=== PATIENT | male | born 1960 | race Caucasian/White ===

== ENCOUNTER 2024-08-31 07:36 | Emergency (ER) | payer OTHER, SELFPAY ==
[2024-08-31] VITALS (8 sets, daily range): BP systolic 119–174; BP diastolic 73–86; PULSE 59–96; RESP 17–23; TEMP 37.2–38.5; O2SAT 88–100; BMI 41.5
--- NOTE | 2024-08-31 07:41 | EKG_ITS ---
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
--- NOTE | 2024-08-31 07:41 | XR_ITS ---
Examination: AP chest single view Technique one AP portable semiupright chest single view Exam date and time: August 31, 2024 0754 hrs. Indications: Chest pain today Findings: Mild enlargement cardiac contour Mild vascular congestion No lobar pneumonia Old fracture right clavicle with moderate osteopenia Impression: Mild vascular congestion
--- NOTE | 2024-08-31 07:46 | EDNOTE_ITS ---
ED SOB =RME/HPI General Chief Complaint: Shortness of Breath/Dyspnea Stated Complaint: SOB Time Seen by Provider: 08/31/24 07:41 Arrival date/time: 08/31/24 07:36 RME / HPI RME / HPI Narrative: DR. BERNARDO MAIN ED EVALUATION: 64 year old male with past medical history significant for COPD presents to the Emergency Department [facility] with complaint of shortness of breath today. Per EMS, patient was satting at 88% on room air en route. Patient has an inhaler but no home oxygen. Associated symptoms include fevers, chills, headache, and a sore throat. Related Data Home Medications ?Medication ?Instructions ?Recorded ?Confirmed Quinapril Hcl * (ACCUPRIL *) 40 mg PO QDAY #0 tabs 07/07 amlodipine 10 mg tablet (Norvasc) 10 mg PO QDAY #0 tab s 07/20/16 atorvastatin 10 mg tablet (Lipitor) 10 mg PO HS #0 tab s 07/20/16 mirabegron 25 mg tablet,extended ##0 07/20/16 release 24 hr (Myrbetriq) oxycodone 80 mg tablet,crush 80 mg PO Q12H ##0 7 resistant,extended release 12 hr (OxyContin) pregabalin 150 mg capsule (Lyrica) 150 mg PO BID #2 ca ps 07/20/16 silodosin 8 mg capsule (Rapaflo) ##0 07/20/16 Hydrocodone/Acetaminophen * (NORCO 1 tab PO Q6H PRN PA IN #0 tabs 06/08/17 10/325 *) insulin lispro 100 unit/mL 40 TID ##0 06/08/17 subcutaneous cartridge (Humalog U-100 Insulin) naloxegol 25 mg tablet (Movantik) 25 mg PO #0 tabs Previous Rx's ?Medication ?Instructions ?Recorded azithromycin 500 mg tablet See Rx Instructions PO .COM PLEX #3 05/19/18 tabs ipratropium bromide 21 mcg (0.03 2 spray intranasal BI D #30 mL 05/19/18 %) nasal spray loratadine 10 mg tablet (Allergy 10 mg PO QDAY allergy symptoms #30 05/19/18 Relief (loratadine)) tabs albuterol sulfate 90 mcg/actuation See Rx Instructions inhalation 04/08/19 aerosol inhaler .COMPLEX PRN wheezing / coug h / shortness of breath #6.7 grams benzonatate 100 mg capsule See Rx Instructions .Route 04/08/19 (Tessalon Perles) .COMPLEX cough #30 caps inhalational spacing device #1 ea 04/08/19 (Aerochamber MV spacer) prednisone 20 mg tablet See Rx Instructions PO QAM # 8 tabs 04/08/19 azithromycin 250 mg tablet 250 mg PO QDAY 4 days #4 ta bs 08/31/24 oseltamivir 75 mg capsule (Tamiflu) 75 mg PO BID 5 day s #10 caps 08/31/24 Allergies Allergy/AdvReac Type Severity Reaction Status Date / Time No Known Allergies Allergy Verified 04/08/19 17:12 Review of Systems Review of Systems Systems Reviewed: All systems reviewed, normal except as documented Past Medical History Past Medical History ENDOCRINE: Positive Diabetes Mellitus Type 1 Social History SMOKING STATUS: Never smoker SUBSTANCE USE: does not use ALCOHOL: Never ED Exam Narrative Physical exam: GENERAL APPEARANCE: alert and oriented x 4, well-developed, well-nourished, in respiratory distress, tachypneic VITALS: All vitals were reviewed and the pulse ox is 88% on room air, which is hypoxic according to my interpretation. HEENT: Normocephalic, atraumatic; pupils equal, round, reactive to light; EOMI; mucous membranes pink, moist; oropharynx clear NECK: Supple LUNGS: Tachypneic. CTABL; no wheezes, no rales, no rhonchi HEART: Regular rate, regular rhythm; normal S1, S2; no murmurs ABDOMEN: non distended; normal BS; soft, no tenderness, no guarding, no rebound; no masses, no organomegaly, no hernia BACK: no CVA tenderness EXTREMITIES: atraumatic; no edema NEUROLOGIC: awake; alert and oriented x4; cranial nerves II-XII grossly intact; no focal sensory or motor deficits PSYCHIATRIC: appropriate mood and affect SKIN: warm, dry, normal color; no rashes Course Quality Measures none Orders Category Date Time Status Bedside COVID-19 Antigen Test NOW Care 08/31/24 07:41 Active Bedside Influenza A&B Antigen Test NOW Care 08/31/24 07:41 Completed Solar 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/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 NOW Care 08/31/24 07:41 Active EKG (ED ONLY) *Do not use* NOW Care 08/31/24 07:41 Completed EKG (ED Only) Stat Exams 08/31/24 07:41 Draft XR chest 1V portable Stat Exams 08/31/24 07:41 Completed B-Type Natriuretic Peptide Stat Lab 08/31/24 08:25 Completed Blood Culture (Lab) Stat Lab 08/31/24 08:10 Received CBC Stat Lab 08/31/24 08:25 Completed Comprehensive Metabolic Panel Stat Lab 08/31/24 08:25 Completed Lactate (Lactic Acid) Stat Lab 08/31/24 08:25 Completed Lipase Stat Lab 08/31/24 08:25 Completed Magnesium Stat Lab 08/31/24 08:25 Completed Partial Thromboplastin Time Stat Lab 08/31/24 08:25 Completed Procalcitonin Stat Lab 08/31/24 08:25 Completed Prothrombin Time with INR Stat Lab 08/31/24 08:25 Completed Troponin I Stat Lab 08/31/24 08:25 Completed Urinalysis Stat Lab 08/31/24 09:18 Completed Urine Culture Stat Lab 08/31/24 09:18 Received Albuterol/Ipratr Rt Nancy [Duoneb Rt Nancy] Med 08/31/24 10:15 Discontinued 3 ml INH X1 ONE Azithromycin Inj [Zithromax Inj] 500 mg Med 08/31/24 10:15 Discontinued Sodium Chloride 0.9% 250 ml [Ns] 250 ml IV X1 Dexamethasone Inj [Decadron Inj] Med 08/31/24 10:15 Discontinued 6 mg IV X1 ONE Oseltamivir [Tamiflu] Med 08/31/24 10:11 Discontinued 75 mg PO X1 ONE oxyCODONE CONTROLLED RELEASE [OxyCONTIN] Med 08/31/24 10:59 Discontinued 30 mg PO X1 ONE Reevaluation(s) Reevaluation #1: Patient states that he feels good and would like to go home. He states that his low oxygen saturation is normal for him and would like to go home. Time: 12:50 Vital Signs Vital signs: Vital Signs Temperature 101.3 F H 08/31/24 07:39 Pulse Rate 84 08/31/24 07:39 Respiratory Rate 19 08/31/24 07:39 Blood Pressure 174/82 H 08/31/24 07:39 Pulse Oximetry (%) 96 08/31/24 07:39 Oxygen Delivery Method Nasal Cannula 08/31/24 07:39 Oxygen Flow Rate 6 08/31/24 07:39 Shortness of Breath / Dyspnea MDM Narrative MDM Narrative:: Chen Maxwell am scribing for and in the presence of Dr. Bernardo. Patient data External records reviewed:: EMS form Clinical information provided by:: patient and EMS Social determinants that could affect healthcare access:: alcohol use Patient has the following chronic illnesses:: COPD, diabetes mellitus type 1 How is presenting disease/condition affected by chronic disease/condition?: exacerbated by Evaluation data The following diagnostics were reviewed and interpreted by me:: lab results, radiology exam(s) and EKG tracing(s) (EKG#1: EKG at hours. Interpreted by me: sinus rhythm with first degree AV block, rate 77, right bundle branch block) Lab and/or radiology exams considered but not ordered:: none Interpretation Summary: Procedure(s): XR chest 1V portable Accession Number(s): [id number] cc: ISIAH MATA; Jack Huitron MD; Lizbeth Bernardo MD~ Examination: AP chest single view Technique one AP portable semiupright chest single view Exam date and time: August 31, 2024 0754 hrs. Indications: Chest pain today Findings: Mild enlargement cardiac contour Mild vascular congestion No lobar pneumonia Old fracture right clavicle with moderate osteopenia Impression: Mild vascular congestion Dictated By: Jack Huitron MD Medications / Prescriptions Medications or Prescriptions considered but not ordered:: none Medication administrations:: Medication Administration History Discontinued Medications Albuterol/Ipratropium (Albuterol/Ipratropium (Duoneb) Rt Nancy 3 Ml Nebu) 3 ml INH X1 ONE Stop: 08/31/24 10:16 Last Admin: 08/31/24 11:09 Dose: 3 ml Documented By: ROMEO Dexamethasone Sodium Phosphate (Dexamethasone Sod Phos Inj 10 Mg/Ml Vial) 6 mg IV X1 ONE Stop: 08/31/24 10:16 Last Admin: 08/31/24 10:46 Dose: 6 mg Documented By: DO Azithromycin 500 mg/ Sodium (Chloride) 250 mls @ 250 mls/hr IV X1 ONE Stop: 08/31/24 11:14 Last Admin: 08/31/24 10:47 Dose: 250 mls/hr Documented By: DO Oseltamivir Phosphate (Oseltamivir 75 Mg Capsule) 75 mg PO X1 ONE Stop: 08/31/24 10:12 Last Admin: 08/31/24 10:39 Dose: 75 mg Documented By: DO Oxycodone HCl (Oxycodone Controlled Release 10 Mg Tabcr) 30 mg PO X1 ONE; Protocol Stop: 08/31/24 11:00 Last Admin: 08/31/24 11:23 Dose: Not Given Documented By: DO Non-Admin Reason: Patient Refused Comments: see above if any Consultations Consultation(s) initiated? (list below): No Diagnosis Shortness of Breath Differential Diagnosis: acute exacerbation of chronic obstructive airways disease, congestive heart failure, community acquired pneumonia, asthma with exacerbation and pulmonary embolism Most likely diagnosis given after review of the tests above:: Influenza A Admission Indicated Admission indicated?: not indicated Admission Request Was there a request for admission?: No Disposition Plan Disposition Plan: Discharge Discharge Attestation Discharge Attestation: The patient and all family members were given an opportunity to ask questions and understood the discharge instructions. Discharge instructions specifically effects, indications for sooner follow up or return to the emergency department, and the expected course of current diagnosis. Patient condition: Stable Discharge Plan Plan Patient Disposition: HOME (Self Care) Prescriptions/Referrals Prescriptions/Med Rec: New oseltamivir [Tamiflu] 75 mg capsule 75 mg PO BID 5 Days Qty: 10 0RF azithromycin 250 mg tablet 250 mg PO QDAY 4 Days Qty: 4 0RF Rx Instructions: start on day 2 of therapy No Action ipratropium bromide 0.03 % spray,non-aerosol 2 spray INTRANASAL BID Qty: 30 0RF Rx Instructions: administer into each nostril; wait 30 seconds between sprays loratadine [Allergy Relief (loratadine)] 10 mg tablet 10 mg PO QDAY Qty: 30 3RF azithromycin 500 mg tablet See Rx Instructions PO .COMPLEX Qty: 3 0RF Rx Instructions: take 500 mg once daily for 3 days PO prednisone 20 mg tablet See Rx Instructions PO QAM Qty: 8 0RF Rx Instructions: PO QAM; Take 40mg (2 tabs) PO QAM x 3 days, then 20mg (1 tab) PO QAM x 2 days benzonatate [Tessalon Perles] 100 mg capsule See Rx Instructions .Route .COMPLEX Qty: 30 0RF Rx Instructions: 1-2 cap(s) PO Q8 hours prn cough albuterol sulfate 90 mcg/actuation HFA aerosol inhaler See Rx Instructions INH .COMPLEX PRN (Reason: wheezing / cough / shortness of breath) Qty: 6.7 0RF Rx Instructions: INH PRN; 1-2 puffs Q4-6 hours prn. administer with spacer (DME) Aerochamber MV spacer See Dose Instructions .ROUTE .MEDSUPPLY Qty: 1 0RF Dose Instruction: As directed Rx Instructions: As directed atorvastatin [Lipitor] 10 MG tablet 10 mg PO HS Qty: 0 amlodipine [Norvasc] 10 MG tablet 10 mg PO QDAY Qty: 0 pregabalin [Lyrica] 150 MG capsule 150 mg PO BID Qty: 2 silodosin [Rapaflo] 8 MG capsule Qty: 0 mirabegron [Myrbetriq] 25 MG tablet extended release 24 hr Qty: 0 oxycodone [OxyContin] 80 MG tablet extended release 12hr 80 mg PO Q12H Qty: 0 Quinapril Hcl * (ACCUPRIL *) 40 MG tablet 40 mg PO QDAY Qty: 0 naloxegol [Movantik] 25 MG tablet 25 mg PO Qty: 0 Hydrocodone/Acetaminophen * (NORCO 10/325 *) 1 TAB tablet 1 tab PO Q6H PRN (Reason: PAIN) Qty: 0 insulin lispro [Humalog U-100 Insulin] 100 U/ML cartridge 40 TID Qty: 0 Referrals: Isiah Mata MD [Primary Care Provider] - In 1 week Problem List Clinical Impression: Influenza A Patient/Caregiver Discharge Instructions Education Materials: ED Influenza (Adult) Print Language: Irish Stand Alone Forms: [employer] Award Info., Patient Portal Info Letter
--- NOTE | 2024-08-31 07:55 | PC.NURSE ---
PT CAME IN WITH C/O COUGH, SOB, FEVER SINCE SUNDAY. PT REPORTS NECK AND BACK PAIN BUT STATES THAT IT IS CHRONIC PAIN. PT PLACED ON CC MONITOR. EKG DONE ON PT ARRIVAL. CHART UP FOR ER DOCTOR TO SEE
--- NOTE | 2024-08-31 08:00 | PC.NURSE ---
X-RAY AT BEDSIDE
[2024-08-31 08:31] LABS: Lactate (Lactic Acid) 1.1 mMol/L (0.4-2.0)
[2024-08-31 08:36] LABS: Basophils % (Auto) 0 % (0-2.5); Eosinophils % (Auto) 0 % (0-10); Hematocrit 35.2 % (41.0-53.0); Hemoglobin 11.6 g/dL (13.5-16.0); Immature Granulocytes % (Auto) 0 % (0-0); Immature Granulocytes Auto 0.01 Thou/mm3 (0.00-0.00); Lymphocytes # (Auto) 0.5 Thou/mm3 (1.0-4.8); Lymphocytes % (Auto) 7 % (10-50); Mean Corpuscular Hemoglobin 30.3 pg (25.0-35.0); Mean Corpuscular Volume 92 fL (80-100); Monocytes # (Auto) 0.6 Thou/mm3 (0.0-0.8); Monocytes % (Auto) 10 % (0-12); Neutrophils # (Auto) 5.4 Thou/mm3 (1.8-7.7); Neutrophils % (Auto) 83 % (37-80); Nucleated Red Blood Cell % 0 /100 WBC (0); Platelet Count 204 Thou/mm3 (140-440); RDW Standard Deviation 40.8 fL (35.1-43.9); Red Blood Count 3.83 Miln/mm3 (4.50-5.90); White Blood Count 6.6 Thou/mm3 (3.8-10.6)
[2024-08-31 08:59] LABS: B-Type Natriuretic Peptide 25 pg/mL (0-100)
[2024-08-31 09:00] LABS: Alanine Aminotransferase 71 U/L (10-49); Albumin, Serum 3.8 gm/dL (3.4-4.8); Albumin/Globulin Ratio 1.3 (1.2-2.2); Alkaline Phosphatase 806 U/L (46-116); Anion Gap 7 (7-16); Aspartate Amino Transferase 71 U/L (0-34); BUN/Creatinine Ratio 21 Ratio (12-20); Bilirubin,Total 0.3 mg/dL (0.3-1.2); Blood Urea Nitrogen 17 mg/dL (9-23); Calcium 8.6 mg/dL (8.3-10.6); Calcium (Corrected) 8.8 mg/dL (8.5-10.1); Chloride 98 mMol/L (98-107); Creatinine (Component) 0.8 mg/dL (0.6-1.3); Estimated Creatinine Clearance 140.5 mL/min (>60); Globulin 2.9 gm/dL (2.3-3.5); Glucose 215 mg/dL (74-106); Lipase 47 U/L (12-53); Magnesium 1.6 mg/dL (1.6-2.6); Osmolality,Calculated 277 (275-295); Sodium 135 mMol/L (136-145); Total Protein 6.7 gm/dL (5.7-8.2); Troponin I 0.023 ng/mL (0.0-0.045); eGFR > 60 See Note
[2024-08-31 09:03] LABS: Partial Thromboplastin Time 20.8 Seconds (22.0-36.0); Procalcitonin 1.22 ng/ml (0.0-0.49); Prothrombin Time 11.3 Seconds (9.0-12.2)
[2024-08-31 09:41] LABS: Collection Type, Urine Clean Catch; Squamous Epithelial Cell,Urine 0 /hpf (0-5)
[2024-08-31 09:49] LABS: Bilirubin,Urine Negative (Negative); Blood,Urine 2+ (Negative); Clarity,Urine Clear (Clear/Hazy); Color,Urine Yellow (Lt Yel-Yel); Glucose, Urine Negative (Negative); Ketones,Urine Negative (Negative); Leukocyte Esterase,Urine Negative (Negative); Nitrite,Urine Negative (Negative); Protein,Urine 1+ (Neg - Trace); RBC,Urine 3 /hpf (0-3); Specific Gravity,Urine 1.031 (1.001-1.035); Urobilinogen,Urine Negative mg/dL (0.0-1.0); WBC,Urine 1 /hpf (0-5)
[2024-08-31] MEDS: OSELTAMIVIR 75 MG CAPSULE PO (10:39)
[2024-08-31] MEDS: DEXAMETHASONE SOD PHOS INJ 10 MG/ML VIAL 6 MG IV (10:46)
[2024-08-31] MEDS: AZITHROMYCIN INJ 500 MG in SODIUM CHLORIDE 0.9% 250 ML 250 ML 250 MG IV (10:47)
[2024-08-31] MEDS: ALBUTEROL/IPRATROPIUM (Duoneb) RT SOL 3 ML NEBU INH (11:09)
--- NOTE | 2024-08-31 11:25 | PC.NURSE ---
ATTEMPTED TO MEDICATE PT FOR PAIN WITH OXYCOTIN ER 30MG. PT STATES THAT HE TAKES A LARGER DOSE THEN WHAT WE HAVE ORDERED. PT STATES THAT HE TAKES OXYCOTIN 120MG ER. INFORMED DR PEREIRA. DR PEREIRA STATED THAT SHE CAN ORDER THE PT DILAUDID INSTEAD. PT STATED NEVERMIND, I DON'T WANT NOTHING THEN . PT THEN STATED THAT HE WILL JUST TAKE HIS HOME PAIN MED. INFORMED PT THAT WE DON'T ADVISE PT TO TAKE HOME MEDICATIONS HERE AT THE HOSPITAL DUE TO POSSIBLE INTERACTION WITH CARE. PT STATES THAT HE NORMALLY TAKES THIS MEDICATION AND IF HE DOES NOT TAKE IT THEN HE WILL BE IN PAIN SO HE IS GOING TO TAKE IT. DR. PEREIRA INFORMED.
--- NOTE | 2024-08-31 12:14 | PC.NURSE ---
PT 02 SATS 94%. PT TAKEN OFF 02 AT THIS TIME TO SEE HOW PT TOLERATES ROOM AIR PER DOCTORS ORDERS.
--- NOTE | 2024-08-31 12:40 | PC.NURSE ---
pt's sats remain 90 to 94%. pt states that is his norm and he wants to go home. will inform dr lewis at this time
== END 2024-08-31 13:34 | disposition home or self-care (01) ==
PROVIDERS: Emergency Provider Emergency Medicine; PCP Internal Medicine
DX: J10.1 Influenza due to other identified influenza virus with other respiratory manifestations (principal); E10.9 Type 1 diabetes mellitus without complications; J44.9 Chronic obstructive pulmonary disease, unspecified; I45.10 Unspecified right bundle-branch block; I44.0 Atrioventricular block, first degree
CPT/HCPCS: 36415; 71045; 80053; 81001; 83605; 83690; 83735; 83880; 84145; 84484; 85025; 85610; 85730; 87040; 87086; 87400; 87811; 93005; 94640; 96365; 96366; 96375; 99284; A9270; J0456; J1100; J7050